=== PATIENT | female | born 1945 | race Caucasian/White ===

== ENCOUNTER 2019-03-31 14:24 | Inpatient (IN) | payer MEDICARE, OTHER ==
[~2019-03-31] VITALS: Ht 167.6 cm; Wt 47.2 kg
--- NOTE | 2019-03-31 14:35 | NUR ---
Pt [email or web address], from home, c/o left rib, hip, and leg pain s/p tripped and fall 3 days ago 12/11 ps. Pt aaox4, vss, breathing even and unlabored on room air w/ nad noted. Pt connected to the monitor and pox
--- NOTE | 2019-03-31 15:31 | NUR ---
XRAY AT BEDSIDE
[2019-03-31] MEDS ORDERED: DEXAMETHASONE SOD PHOSPHATE 10 MG/ML VIAL ONE (17:28)
[2019-03-31] MEDS ORDERED: KETOROLAC TROMETHAMINE INJ 30 MG/ML VIAL ONE (17:28)
[2019-03-31] MEDS ORDERED: KETOROLAC TROMETHAMINE INJ 30 MG/ML VIAL IM ONE (17:30)
[2019-03-31] MEDS ORDERED: DEXAMETHASONE SOD PHOSPHATE 4 MG/ML VIAL IM ONE (17:30)
[2019-03-31] MEDS ORDERED: HYDROCODONE/APAP 5/325MG 1 EACH TABLET ONE (18:10)
[2019-03-31] MEDS ORDERED: HYDROCODONE/APAP 5/325MG 1 EACH TABLET PO ONE (18:30)
--- NOTE | 2019-03-31 20:02 | NUR ---
PT UNABLE TO AMBULATE. AWARE.
--- NOTE | 2019-03-31 20:37 | NUR ---
REPORT CALLED TO [facility]. WILL TRANSPORT PT TO [facility].
--- NOTE | 2019-03-31 20:42 | NUR ---
PT TAKEN TO RADIOLOGY VIA [facility]
--- NOTE | 2019-03-31 20:50 | NUR ---
PT RETURNED FROM CT
[2019-03-31 20:55] VITALS: BP 143/84
--- NOTE | 2019-03-31 20:55 | NUR ---
MS ASSOCIATE NOTE RECEIVED PATIENT VIA GURNEY. TRANSFER TO BED. A/OX4. TOLERATING ROOM AIR. RESPIRATIONS ARE EVEN AND UNLABORED. NO S/S SOB NOTED. STATES SHE IS IN PAIN BUT IS TOLERABLE, INFORMED HER I WILL PROVIDE MEDICATION ONCE MEDICATIONS ARE VERIFIED. IV ACCESS IN LEFT FOREARM#20 PATENT AND SALINE LOCKED. PATIENT CHANGED INTO GOWN, VS TAKEN, BELONGINGS LIST COMPETED BY AUTO BODY CUSTOMIZER. INITIAL PHYSICAL ASSESSMENT COMPLETED AT THIS TIME. SKIN ASSESSMENT COMPLETED, SKIN IS INTACT. PATIENTS HOME MEDICATIONS REMOVED FROM ROOM TO GIVE TO PHARMACY, PATIENT INFORMED THEY WILL E RETURNED ONCE DISCHARGED. BED IS LOW AND LOCKED, SIDE RAILS UPX2, HOB ELEVATES SEMI FOWLERS. CALL LIGHT WITHIN REACH. WILL CONTINUE TO MONITOR.
[2019-03-31] MEDS ORDERED: MAGNESIUM HYDROXIDE 30 ML UDC PO PRN (21:00)
[2019-03-31] MEDS ORDERED: ONDANSETRON HCL/PF 4 MG/2 ML VIAL IVP PRN (21:00)
[2019-03-31] MEDS ORDERED: MORPHINE SULFATE INJ 2 MG/ML DISP.SYRIN IV PRN (21:00)
[2019-03-31] MEDS ORDERED: Z GUARD REMEDY 2 OZ OINT TP PRN (21:00)
[2019-03-31] MEDS ORDERED: MAG HYDROX/AL HYDROX/SIMETH 30 ML UDC PO PRN (21:00)
[2019-03-31] MEDS ORDERED: ACETAMINOPHEN 325 MG TABLET PO PRN (21:00)
[2019-03-31] MEDS ORDERED: ZOLPIDEM TARTRATE 5 MG TABLET PO PRN (21:00)
--- NOTE | 2019-03-31 22:43 | NUR ---
MS RN NOTE OFFERED PATIENT MILK OF MAGNESIA D/T NO BOWEL MOVEMENT FOR 4 DAYS. PATIENT DOES NOT WANT MILK OF MAGNESIA TONIGHT BUT WOULD LIKE TO TAKE A PILL TOMORROW DURING THE DAY. WILL ENDORSE TO NEXT SHIFT.
[2019-03-31] MEDS: HYDROCODONE/APAP 5/325MG 1 EACH TABLET PO PRN (22:46)
--- NOTE | 2019-03-31 22:46 | NUR ---
MS RN NOTE ADMINISTERED PRN NORCO 5/325 FOR PAIN 5/10 IN BACK AND RIGHT LEG. WILL CONTINUE TO MONITOR.
[2019-04-01] MEDS: ENOXAPARIN SODIUM 40 MG/0.4 ML DISP.SYRIN SQ SCH ×2 (00:30→18:50)
[2019-04-01] MEDS ORDERED: NEBI5TAB8 PO (01:24)
[2019-04-01] MEDS ORDERED: ROSU10TA2 PO (01:24)
[2019-04-01] MEDS ORDERED: ASPI-605 PO (01:24)
[2019-04-01] MEDS: HYDROCODONE/APAP 5/325MG 1 EACH TABLET PO PRN ×4 (05:16→16:47)
--- NOTE | 2019-04-01 05:17 | NUR ---
MS RN NOTE ADMINISTERED PRN NORCO 5/325 FOR PAIN 5/10 IN LEFT LEG. WILL CONTINUE TO MONITOR.
[2019-04-01 06:27] LABS: BASOPHILS % (AUTO) 0.2 % (0.0-2.0); EOSINOPHILS % (AUTO) 0.1 % (0.0-6.0); HEMATOCRIT 45 % (33-45); HEMOGLOBIN 15.2 g/dL (11.5-14.8); LYMPHOCYTES # (AUTO) 0.6 /CMM (0.8-4.8); LYMPHOCYTES % (AUTO) 8.4 % (20.0-44.0); MEAN CORPUSCULAR HGB CONC 34 g/dl (31.0-36.0); MEAN CORPUSCULAR VOLUME 85 fL (82-100); MONOCYTES # (AUTO) 0.2 /CMM (0.1-1.30); MONOCYTES % (AUTO) 2.3 % (2.0-12.0); NEUTROPHILS # (AUTO) 6.6 /CMM (1.8-8.9); PLATELET COUNT (AUTO) 320 /CMM (150-450); WHITE BLOOD COUNT (AUTO) 7.4 K/uL (4.3-11.0)
--- NOTE | 2019-04-01 06:40 | NUR ---
MS RN CLOSING NOTE PATIENT IN BED. A/OX4. TOLERATING ROOM AIR. RESPIRATIONS ARE EVEN AND UNLABORED. NO SOB NOTED. IN NO APPARENT DISTRESS. PAIN MANAGED WITH NORCO 5/325 FOR PAIN IN HER BACK AND LEFT LEG. IV ACCESS MAINTAINED IN LEFT FOREARM#20 PATENT AND SALINE LOCKED. BED REMAINS LOW AND LOCKED, SIDE RAILS UPX2, HOB ELEVATES SEMI FOWLERS. CALL LIGHT WITHIN REACH. WILL ENDORSE TO NEXT SHIFT.
[2019-04-01 06:56] LABS: CALCIUM, SERUM 9.3 mg/dL (8.5-10.1); CARBON DIOXIDE 22 mmol/L (21-32); CHLORIDE 100 mmol/L (98-107); CREATININE 1.1 mg/dL (0.6-1.3); GLUCOSE 153 mg/dL (74-106); MAGNESIUM 2.1 mg/dL (1.8-2.4); PHOSPHORUS 6.1 mg/dL (2.5-4.9); SODIUM SERUM 138 mmol/L (136-145); UREA NITROGEN, BLOOD 37 mg/dL (7-18)
[2019-04-01 06:57] LABS: CHOLESTEROL 191 mg/dL (<200); HDL CHOLESTEROL 54 mg/dL (40-60); LDL 118 mg/dL (0-99); THYROID STIMULATING HORMONE 1.084 uIU/mL (0.358-3.74); TRIGLYCERIDES 95 mg/dL (30-150)
--- NOTE | 2019-04-01 07:45 | NUR ---
TOMMY WEST NOTES PT IN BED, AWAKE, ALERT AND ORIENTED, EATING BREAKFAST, WITH COMPLAINT OF RIGHT LEG PAIN, NOT IN DISTRESS, CALL LIGHT WITHIN REACH, KEPT DAIRY INSPECTOR BED, NEEDS ATTENDED. Addendum: 04/01/19 at 0939 by KIKI BAUER RN PAIN IS AT THE LEFT LEG NOT RIGHT LEG.
[2019-04-01 08:00] VITALS: BP 121/50
--- NOTE | 2019-04-01 13:15 | NUR ---
RN MS NOTES PT IN BED, AWAKE, ALERT AND ORIENTED, PAIN MEDICATION GIVEN FOR PAIN MANAGEMENT, PT SEEN AND EXAMINED BY DR. DE LEÓN,PLAN OF CARE DISCUSSED WITH PT, VERBALIZED UNDERSTANDING, NEEDS ATTENDED.
[2019-04-01 16:00] VITALS: BP 134/76
[2019-04-01] MEDS ORDERED: POLYETHYLENE GLYCOL 3350 17 GM POWD.PACK PO PRN (19:00)
--- NOTE | 2019-04-01 19:00 | NUR ---
RN MS NOTES PT IN BED, AWAKE, ALERT AND ORIENTED, NO COMPLAINT OF PAIN AT THIS TIME, NOT IN DISTRESS, CALL LIGHT WITHIN REACH, ASSISTED WITH MEALS, PM CARE PROVIDED, ALL NEEDS ATTENDED.
--- NOTE | 2019-04-01 19:30 | NUR ---
MS RN OPENING NOTE RECEIVED PATIENT IN BED. A/OX4. TOLERATING ROOM AIR. RESPIRATIONS ARE EVEN AND UNLABORED. NO S/S SOB NOTED. IN NO APPARENT DISTRESS. DENIES PAIN AT THIS TIME. IV ACCESS IN LEFT FOREARM#20 PATENT AND SALINE LOCKED. BED IS LOW AND LOCKED, SIDE RAILS UPX2, HOB ELEVATES SEMI FOWLERS. CALL LIGHT WITHIN REACH. WILL CONTINUE TO MONITOR.
[2019-04-01 20:00] VITALS: BP 125/70
[2019-04-02] MEDS: HYDROCODONE/APAP 5/325MG 1 EACH TABLET PO PRN (02:57)
--- NOTE | 2019-04-02 02:57 | NUR ---
MS RN NOTE ADMINISTERED PRN NORCO 5 FRO PAIN 7/10 IN LEFT LEG. WILL CONTINUE TO MONITOR.
[2019-04-02] MEDS ORDERED: ASPI-605 PO (07:31)
[2019-04-02] MEDS ORDERED: ROSU10TA2 PO (07:31)
[2019-04-02] MEDS ORDERED: NEBI5TAB8 PO (07:31)
--- NOTE | 2019-04-02 07:36 | NUR ---
MS RN CLOSING NOTE PATIENT IN BED. A/OX4. TOLERATING ROOM AIR. RESPIRATIONS ARE EVEN AND UNLABORED. NO SOB NOTED. IN NO APPARENT DISTRESS. PAIN MANAGED WITH NORCO 5/325 FOR PAIN IN LEFT LEG ALSO PROVIDED HEATING PACKS TO HELP WITH THE PAIN. PATIENT AND I DISCUSSED THAT MAYBE NORCO 10/325 WILL BE BETTER AND WOULD WANT THAT WHEN SHE IS ABLE TO TAKE PAIN MEDICATION AGAIN. PATIENT ALSO HAD AN EPISODE OF VOMITING AT 0620 BUT REFUSED ZOFRAN. IV ACCESS MAINTAINED IN LEFT FOREARM#20 PATENT AND SALINE LOCKED. BED REMAINS LOW AND LOCKED, SIDE RAILS UPX2, HOB ELEVATES SEMI FOWLERS. CALL LIGHT WITHIN REACH. WILL ENDORSE TO NEXT SHIFT.
--- NOTE | 2019-04-02 07:51 | NUR ---
MS RN OPENING NOTE PATIENT IN BED RESTING COMFORTABLY. PATIENT IN NO ACUTE DISTRESS. NO SOB NOTED. PATIENT BREATHING IS EVEN AND UNLABORED. NO FACIAL GRIMACING NOTED. SAFETY PRECAUTIONS IN PLACE. BED ALARM IS ON. PATIENT BED IS LOCKED AND IN LOWEST POSITION. CALL LIGHT WITHIN REACH. WILL CONTINUE TO MONITOR.
[2019-04-02 08:00] VITALS: BP 130/61
[2019-04-02] MEDS: HYDROCODONE/APAP 10/325MG 1 EA TABLET PO PRN ×2 (08:47→17:08)
[2019-04-02] MEDS: ENSURE ENLIVE CHOC 237 ML CAN PO SCH ×2 (14:35→16:25)
[2019-04-02 16:00] VITALS: BP 157/73
[2019-04-02] MEDS: ENOXAPARIN SODIUM 40 MG/0.4 ML DISP.SYRIN SQ SCH (17:08)
--- NOTE | 2019-04-02 18:25 | NUR ---
MS RN CLOSING NOTE PATIENT IN BED RESTING COMFORTABLY. PATIENT IN NO ACUTE DISTRESS. NO SOB NOTED. PATIENT BREATHING IS EVEN AND UNLABORED. PATIENT IN NO PAIN AT THIS TIME. NO FACIAL GRIMACING NOTED. PATIENT KEPT CLEAN, DRY, AND COMFORTABLE THROUGHOUT SHIFT. NEEDS AND CONCERNS ADDRESSED. PATIENT TURNED AND REPOSITIONED MUCH PATIENT WOULD ALLOW. SAFETY PRECAUTIONS IN PLACE. BED ALARM IS ON. PATIENT BED IS LOCKED AND IN LOWEST POSITION. CALL LIGHT WITHIN REACH. WILL ENDORSE CARE TO PM SHIFT FOR PERNELL.
--- NOTE | 2019-04-02 19:05 | NUR ---
RN MS OPENING NOTES RECEIVED PATIENT IN BED AWAKE ALERT AND ORIENTED X4, RESPIRATIONS EVEN AND UNLABORED WITH EQUAL RISE AND FALL OF CHEST,DENIES ANY PAIN OR DISCOMFORT AT THIS TIME, IV SITE TO LEFT FA #20 G INTACT AND PATENT, NO REDNESS, NO INFILTRATION PRESENT, SAFETY PRECAUTIONS IN PLACE, LOW BED AND LOCKED, ORIENTED TO STAFF AND CALL LIGHT AND KEPT WITHIN REACH, WILL CONTINUE TO MONITOR AND ATTEND TO NEEDS.REMAINS COMFORTABLE AT THIS TIME WILL CONTINUE TO ATTEND TO NEEDS.
[2019-04-02 20:00] VITALS: BP 136/73
[2019-04-02 20:12] VITALS: BP 136/73
[2019-04-02] MEDS: METOPROLOL TARTRATE 25 MG TABLET PO SCH (21:08)
[2019-04-03] MEDS: HYDROCODONE/APAP 5/325MG 1 EACH TABLET PO PRN (01:25)
--- NOTE | 2019-04-03 01:25 | NUR ---
rn ms notes patient complaint of pain to left leg 5/10 requesting for norco norco prn given as ordered will continue to monitor for effectiveness, vs wnl.
[2019-04-03] MEDS: HYDROCODONE/APAP 10/325MG 1 EA TABLET PO PRN (05:51)
--- NOTE | 2019-04-03 05:58 | NUR ---
rn ms notes patient complaint of pain to left leg 11/10 requesting for norco norco prn given as ordered will continue to monitor for effectiveness, vs wnl.
--- NOTE | 2019-04-03 06:26 | NUR ---
RN MS CLOSING NOTES PATIENT IN BED AWAKE ALERT AND ORIENTED X4, RESPIRATIONS EVEN AND UNLABORED WITH EQUAL RISE AND FALL OF CHEST, NORCO PRN NOTED EFFECTIVE, DENIES ANY PAIN OR DISCOMFORT AT THIS TIME, WARM BLANKETS APPLIED TO LEFT LEG FOR HEAT REQUESTED BY PATIENT, PATIENT NOTED WITH SACRAL REDNESS, UNABLE TO TAKE PHOTO PATIENT REFUSED DESPITE EDUCATION. MEPILEX REMAINS INTACT, OFFERED REPOSITIONING PATIENT NOTED TO BE REFUSIVE AT TIMES, ALSO NOTED PATIENT IS ABLE TO SELF REPOSITION BUT PREFERS TO LAY SUPINE, ENCOURAGED TO REPOSITION. IV SITE TO LEFT FA #20 G INTACT AND PATENT, NO REDNESS, NO INFILTRATION PRESENT, SAFETY PRECAUTIONS IN PLACE, LOW BED AND LOCKED, CALL LIGHT KEPT WITHIN REACH, FLUIDS OFFERED, WILL CONTINUE TO MONITOR AND ATTEND TO NEEDS.REMAINS COMFORTABLE AT THIS TIME, WILL ENDORSE TO NEXT SHIFT, NO FURTHER CHANGES NOTED THROUGHOUT SHIFT.
[2019-04-03] MEDS: ENSURE ENLIVE CHOC 237 ML CAN PO SCH ×2 (07:37→16:42)
[2019-04-03 08:00] VITALS: BP 114/71
[2019-04-03] MEDS: METOPROLOL TARTRATE 25 MG TABLET PO SCH (08:29)
[2019-04-03] MEDS ORDERED: ASPIRIN EC 81 MG TABLET.DR PO SCH (09:00)
[2019-04-03] MEDS ORDERED: ATORVASTATIN 10 MG TABLET PO SCH (09:00)
[2019-04-03] MEDS ORDERED: Hydrocodone/Apap 10/325MG PO (12:21)
[2019-04-03] MEDS ORDERED: HYDR-3972 PO (12:21)
[2019-04-03 16:00] VITALS: BP 151/82
[2019-04-03] MEDS: ENOXAPARIN SODIUM 40 MG/0.4 ML DISP.SYRIN SQ SCH (17:18)
--- NOTE | 2019-04-03 17:46 | NUR ---
MS RN NOTE PATIENT REFUSED TO HAVE SKIN ASSESSMENT. PATIENT STATES " I DONT WANT TO BE TOUCHED OR MOVED, I DONT WANT A SKIN ASSESSMENT." EDUCATED PATIENT ON RISKS VS BENEFITS. PATIENT CONTINUED TO REFUSE.
--- NOTE | 2019-04-03 19:28 | NUR ---
MS PRODUCTION OPERATIONS INSPECTOR NOTE PATIENT MEDICALLY STABLE FOR DISCHARGE. PATIENT IN NO ACUTE DISTRESS. NO SOB NOTED. PATIENT BREATHING IS EVEN AND UNLABORED. PATIENT VITAL SIGNS WNL. DC INSTRUCTIONS PROVIDED, PATIENT VERBALIZED UNDERSTANDING. PATIENT REFUSED TO HAVE SKIN ASSESSMENT. EDUCATED RISKS VS BENEFITS. PATIENT CONTINUED TO REFUSE. PATIENT ID BAND REMOVED. IV REMOVED. PATIENT SIGNED BELONGINGS LIST AND HAS ALL BELONGINGS WITH HER. PATIENT KEPT CLEAN, DRY, AND COMFORTABLE THROUGHOUT SHIFT. PATIENT EXTREMITIES OFFLOADED ON PILLOWS AND REPOSITIONED MUCH PATIENT WOULD ALLOW. PATIENT GOING BY AMBULANCE BACK TO [facility], [place], [facility]. REPORT GIVEN TO KENN SANDERS AT [facility] [place]. MD AWARE OF DISCHARGE.
[2019-04-03 19:30] VITALS: BP 146/78
--- NOTE | 2019-04-03 19:30 | NUR ---
rn ms notes patient for discharge left in stable condition, picked up by umer matthews aru aware of patients arrival. vs wnl 146/78,97.7,96% ra, 88,18 belongings with patient, iv and id band removed prior to discharge.
== END 2019-04-03 19:30 | DRG 552 ==
LOC: ER 14:30 → MEDSG2 20:24
PROVIDERS: ATTEND Nurse Practitioner Acute Care
DX: M43.17 Spondylolisthesis, lumbosacral region (principal); I69.351 Hemiplegia and hemiparesis following cerebral infarction affecting right dominant side; E44.0 Moderate protein-calorie malnutrition; Z68.1 Body mass index [BMI] 19.9 or less, adult; M48.061 Spinal stenosis, lumbar region without neurogenic claudication; S39.82XA Other specified injuries of lower back, initial encounter; W18.30XA Fall on same level, unspecified, initial encounter; I10 Essential (primary) hypertension; M25.552 Pain in left hip; X58.XXXA Exposure to other specified factors, initial encounter; Y93.9 Activity, unspecified; Y92.009 Unspecified place in unspecified non-institutional (private) residence as the place of occurrence of the external cause; K57.30 Diverticulosis of large intestine without perforation or abscess without bleeding; M54.30 Sciatica, unspecified side
CPT/HCPCS: 36415; 72110-TC; 72131-TC; 73502; 73700-TC; 80048-TC; 80061-TC; 83735-TC; 84100-TC; 84443-TC; 85025-TC; 87081-TC; 97110-TC; 97530-TC; G0378; J1100; J1650; J1885

== ENCOUNTER 2019-05-16 10:58 | Outpatient (CLI) | payer MEDICARE, BC ==
[~2019-05-16 10:58] MED LIST: ASPI-605 PO; HYDR-3972 PO; Hydrocodone/Apap 10/325MG PO; NEBI5TAB8 PO; ROSU10TA2 PO
== END 2019-05-16 23:59 | disposition home or self-care (01) ==
LOC: MSC 10:58
PROVIDERS: ATTEND Internal Medicine
DX: M48.061 Spinal stenosis, lumbar region without neurogenic claudication (principal); I69.351 Hemiplegia and hemiparesis following cerebral infarction affecting right dominant side; M54.30 Sciatica, unspecified side; M81.0 Age-related osteoporosis without current pathological fracture; I10 Essential (primary) hypertension; E78.5 Hyperlipidemia, unspecified; F41.8 Other specified anxiety disorders; E44.0 Moderate protein-calorie malnutrition; Z79.82 Long term (current) use of aspirin; Z79.891 Long term (current) use of opiate analgesic; Z79.899 Other long term (current) drug therapy